=== PATIENT | male | born 1940 | race Caucasian/White ===

== ENCOUNTER → 2016-09-19 | Outpatient (CLI) | payer MEDICARE, MEDICAID ==
[2015-12-28 13:44] VITALS: BP 111/71
[~2016-09-19] MED LIST: SULF1TAB24 PO
--- NOTE | 2016-09-19 12:32 | CARD ---
APPROVED REPORT EXAM: Two-dimensional and M-mode echocardiogram with Doppler and color Doppler. Other Information Quality : Limited Rhythm : PacemakerTechnically limited study due to postioning. INDICATION Hypertension/HCVD 2D DIMENSIONS RVDd2.5 (2.9-3.5cm)Left Atrium(2D)3.6 (1.6-4.0cm) IVSd1.1 (0.7-1.1cm)Aortic Root(2D)3.7 (2.0-3.7cm) LVDd5.6 (3.9-5.9cm)PWd1.0 (0.7-1.1cm) LVDs4.7 (2.5-4.0cm)FS (%) 17.0 % SV54.3 mlLVEF(%)25.2 (>50%) Aortic Valve AoV Peak Miller.122.7cm/sAoV VTI23.7cm AO Peak GR.6.0mmHgAO Mean GR.4mmHg ALIDA (VTI)2.56cm2 Mitral Valve MV E Wajwvbqq32.1cm/sMV E Peak Gr.3mmHg MV DECEL [id number] A Ozqcydzm66.9cm/s MV E Mean Gr.1mmHgMV [id number] E/A Ratio1.1MVA (PHT)3.55cm2 Tricuspid Valve TR P. Rgrucfxe925yn/sTR Peak Gr.16mmHg LEFT VENTRICLE The Left Ventricle is borderline dilated. There is normal left ventricular wall thickness. Left ventr icle systolic function is severely impaired. The Ejection Fraction is 20-25%. There is severe global hypokinesis of the left ventricle. Unable to assess diastolic function. RIGHT VENTRICLE The right ventricle is normal size. The right ventricular systolic function is normal. There is a dev ice lead seen in the RV/RA. ATRIA The left atrium size is normal. The right atrium size is normal. The interatrial septum is intact wit h no evidence for an atrial septal defect or patent foramen ovale as noted on 2-D or Doppler imaging. AORTIC VALVE The aortic valve is not well visualized. Doppler and Color Flow revealed no significant aortic regurg itation. There is no significant aortic valvular stenosis. MITRAL VALVE The mitral valve is normal in structure and function. There is no mitral valve stenosis. Doppler and Color Flow revealed trace mitral regurgitation. TRICUSPID VALVE The tricuspid valve is normal in structure and function. Doppler and Color Flow revealed trace tricus pid regurgitation. Unable to estimate accurately estimate PA pressure. There is no tricuspid valve st enosis. PULMONIC VALVE The pulmonic valve is not well visualized. Doppler and Color Flow revealed no pulmonic valvular regur gitation. There is no pulmonic valvular stenosis. GREAT VESSELS The aortic root is normal in size. Pulmonary veins not recorded. The IVC is normal in size and collap ses >50% with inspiration. PERICARDIAL EFFUSION There is no evidence of significant pericardial effusion. Critical Notification Critical Value: No <Conclusion> The Left Ventricle is borderline dilated. Left ventricle systolic function is severely impaired. The Ejection Fraction is 20-25%. There is severe global hypokinesis of the left ventricle. There is a device lead seen in the RV/RA. There is no significant aortic valvular stenosis. Doppler and Color Flow revealed no significant aortic regurgitation. Doppler and Color Flow revealed trace mitral regurgitation. Doppler and Color Flow revealed trace tricuspid regurgitation. Unable to estimate accurately estimate PA pressure. There is no evidence of significant pericardial effusion.
== END | disposition home or self-care (01) ==
LOC: ECHO 10:38
PROVIDERS: ATTEND Internal Medicine Cardiovascular Disease
DX: I10 Essential (primary) hypertension (principal)
CPT/HCPCS: 93306

== ENCOUNTER → 2017-01-10 | Outpatient (CLI) | payer MEDICAID, MEDICARE ==
[2015-12-28 13:44] VITALS: BP 111/71
--- NOTE | 2017-01-10 11:20 | RAD ---
Complete bilateral renal ultrasound 01/10/2017 at 0838 hours Indication: Chronic kidney disease Comparison: Renal ultrasound 01/26/2015, CT abdomen 02/09/2015 Technique: Sonographic imaging of the kidneys was performed utilizing grayscale and color Doppler. Findings: Right kidney measures 11.8 x 5.8 x 4.9 cm with cysts measuring 1.5 x 1.2 x 1.3 cm and 2.3 x 2.2 x 1.8 cm in the mid to inferior poles. Right uterine jet is visualized. No renal calculi or contour deforming renal mass is noted. Left kidney measures 18.9 x 13.2 x 1.9 cm. There is marked hydronephrosis with cortical thinning. Debris is noted within the renal collecting system, new from prior examination. Findings have overall progressed in the left kidney. There is a 14 mm calculus in the proximal left ureter. There is no free fluid. Urinary bladder appears normal. Impression: 1. There is a persistent 14 mm calculus in the proximal left kidney with associated marked hydronephrosis which appears progressed since the prior examination from 01/26/2015. Debris is noted within the renal collecting system and superimposed infection cannot be excluded. Correlation with urinalysis is recommended. 2. Normal-appearing right kidney with simple appearing cysts.
== END | disposition home or self-care (01) ==
LOC: US 07:59
PROVIDERS: ATTEND Urology
DX: N18.9 Chronic kidney disease, unspecified (principal)
CPT/HCPCS: 76770

== ENCOUNTER → 2017-01-30 | Outpatient (CLI) | payer MEDICARE, MEDICAID ==
[2015-12-28 13:44] VITALS: BP 111/71
--- NOTE | 2017-01-30 13:36 | CARD ---
APPROVED REPORT EXAM: Two-dimensional and M-mode echocardiogram with Doppler and color Doppler. Other Information Quality : Technically Limited Technically limited study due to body habitus and movement. INDICATION Cardiomyopathy 2D DIMENSIONS Left Atrium(2D)3.2 (1.6-4.0cm)IVSd1.0 (0.7-1.1cm) Aortic Root(2D)4.2 (2.0-3.7cm)LVDd6.0 (3.9-5.9cm) LVOT Diameter2.7 (1.8-2.4cm)PWd1.0 (0.7-1.1cm) LVDs5.5 (2.5-4.0cm)FS (%) 9.3 % SV36.7 mlLVEF(%)20.1 (>50%) Aortic Valve AoV Peak Miller.170.2cm/sAoV VTI30.6cm AO Peak GR.11.6mmHgLVOT Peak Miller.63.8cm/s LVOT VTI 12.81cmAO Mean GR.8mmHg ALIDA (VMAX)2.89gv9LKQ (VTI)2.42cm2 Mitral Valve MV E Etechwwp19.1cm/sMV DECEL JBAD093ed MV A Qupewgfb94.0cm/sE/A Ratio1.7 MV A [id number] Tricuspid Valve TR P. Bhcmuugs887yi/sRAP FQULMNZE1reDn TR Peak Gr.26zwKfSCJY56wpYk LEFT VENTRICLE The Left Ventricle is mildly dilated. There is normal left ventricular wall thickness. Left ventricle systolic function is severely impaired. The Ejection Fraction is 25%. There is global hypokinesis of the left ventricle. Apical motion consistent with pacemaker activation. Tissue Doppler imaging revea ls moderate left ventricular diastolic dysfunction. There is no ventricular septal defect visualized. RIGHT VENTRICLE The right ventricle is normal size. The right ventricular systolic function is normal. There is a pac emaker lead seen in the RV/RA. ATRIA The left atrium size is normal. The right atrium size is normal. The interatrial septum is intact wit h no evidence for an atrial septal defect or patent foramen ovale as noted on 2-D or Doppler imaging. AORTIC VALVE The aortic valve is not well visualized but appears sclerotic. Doppler and Color Flow revealed no sig nificant aortic regurgitation. There is no significant aortic valvular stenosis. MITRAL VALVE Mitral annular calcification is mild. The posterior mitral valve leaflet appears fixed. There is no m itral valve stenosis. Doppler and Color Flow revealed mild mitral regurgitation. TRICUSPID VALVE The tricuspid valve is normal in structure and function. Doppler and Color Flow revealed mild tricusp id regurgitation. The PA pressure was estimated at 25 mmHg. There is no tricuspid valve stenosis. PULMONIC VALVE The pulmonic valve is not well visualized. Doppler and Color Flow revealed no pulmonic valvular regur gitation. There is no pulmonic valvular stenosis. GREAT VESSELS The aortic root is moderately enlarged. Measuring 4.3cm, The ascending aorta is moderately dilated. M easuring 4.4cm. Pulmonary veins not recorded. The IVC is normal in size and collapses >50% with inspi ration. PERICARDIAL EFFUSION There is no evidence of significant pericardial effusion. Critical Notification Critical Value: No <Conclusion> Left ventricle systolic function is severely impaired. The Ejection Fraction is 25%. Mild mitral regurgitation. Mild tricuspid regurgitation. The PA pressure was estimated at 25 mmHg. There is no evidence of significant pericardial effusion.
== END | disposition home or self-care (01) ==
LOC: ECHO 10:00
PROVIDERS: ATTEND Internal Medicine Cardiovascular Disease
DX: I08.1 Rheumatic disorders of both mitral and tricuspid valves (principal); I42.9 Cardiomyopathy, unspecified
CPT/HCPCS: 93306